=== PATIENT | male | born 1985 ===

== ENCOUNTER 2016-05-31 09:39 | Emergency (ER) | payer MEDICAID, OTHER ==
[2016-05-31 09:47] VITALS: BP 135/59; PULSE 91; RESP 20; TEMP 98.8; O2SAT 98
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
--- NOTE | 2016-05-31 10:49 | RAD ---
PROCEDURE: Right Hand Radiographs. HISTORY: Trauma COMPARISON: None. FINDINGS: BONES: Bone alignment and mineralization are normal. There is no acute displaced fracture or bone destruction. JOINTS: Normal. SOFT TISSUES: Normal. OTHER FINDINGS: None. IMPRESSION: No acute fracture or dislocation.
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
[2016-05-31 11:26] LABS: BASO % 0.3 % (0.0-2.0); EOS # 0.1 K/uL (0.0-0.7); EOS % 1.6 % (0.0-4.0); HEMATOCRIT 43.3 % (35.0-51.0); LYMPH # 1.6 K/uL (1.0-4.3); LYMPH % 20.8 % (20.0-40.0); MEAN CELL VOLUME 88.6 fl (80.0-94.0); MEAN CORPUSCULAR HEMOGLOBIN 29.6 pg (27.0-31.0); MEAN CORPUSCULAR HGB CONC 33.5 g/dL (33.0-37.0); MEAN PLATELET VOLUME 8.4 fl (7.2-11.7); MONO # 0.8 K/uL (0.0-0.8); MONO % 9.8 % (0.0-10.0); NEUT # 5.2 K/uL (1.8-7.0); NEUT % 67.5 % (50.0-75.0); NRBC % 0.2 % (0.0-0.0); RED CELL DISTRIBUTION WIDTH 14.8 % (11.5-14.5); WHITE BLOOD COUNT 7.7 K/uL (4.8-10.8)
== END 2016-05-31 12:49 | disposition home or self-care (01) ==
LOC: H.ER 09:39
DX: L03.019 Cellulitis of unspecified finger (principal); W22.01XA Walked into wall, initial encounter; Y93.9 Activity, unspecified

== ENCOUNTER 2017-07-31 11:38 | Emergency (ER) | payer MEDICAID ==
[2017-07-31 11:41] VITALS: BMI 28.4
[2017-07-31 11:43] VITALS: BP 121/70; PULSE 105; RESP 20; TEMP 98.5
[2017-07-31 12:38] VITALS: O2SAT 99
--- NOTE | 2017-07-31 12:52 | ED PDOC ---
HPI: Skin/Bite Injury Time Seen by Provider: 07/31/17 12:07 Chief Complaint (Nursing): Abnormal Skin Integrity Chief Complaint (Provider): Abnormal Skin Integrity History Per: Patient History/Exam Limitations: no limitations Onset/Duration Of Symptoms: Days (x 1) Current Symptoms Are (Timing): Still Present Quality Of Symptoms: Itching, Other (burning ) Additional Complaint(s): 32 year old male presents to the ED with a burning rash on both armpits since this he awoke this morning. Patient reports that he has had pruritic bug bite like rashes for the last two months on back and forearms. He also admits that he perspires a lot. Denies fever, sick contacts, recent travel and shortness of breath. PMD: Dr. Elizabeth Murray Past Medical History Reviewed: Historical Data, Nursing Documentation, Vital Signs Vital Signs: Last Vital Signs Temp 98.5 F 07/31/17 11:41 Pulse 105 H 07/31/17 11:41 Resp 20 07/31/17 11:41 BP 121/70 07/31/17 11:41 Pulse Ox 99 07/31/17 13:13 - Medical History PMH: No Chronic Diseases - Surgical History Surgical History: No Surg Hx - Family History Family History: States: Unknown Family Hx - Social History Current smoker - smoking cessation education provided: Yes (Heavy Smoker >10 Cigarettes a day ) Alcohol: None Drugs: Denies - Immunization History Hx Tetanus Toxoid Vaccination: No Hx Influenza Vaccination: No Hx Pneumococcal Vaccination: No - Home Medications Home Medications: Ambulatory Orders Medication Instructions Recorded Amoxicillin/Clavulanate [Augmentin 1 tab PO BID #20 tab 05/31/16 875 MG-125 MG] traMADol [Ultram] 50 mg PO Q8 #10 tab 05/31/16 DiphenhydrAMINE [Benadryl] 1 - 2 cap PO Q6 PRN #30 cap 07/31/17 Nystatin/Triamcinolone 1 appl TP TID #1 tube 07/31/17 [Nystatin/Triamcinolone Cream] - Allergies Allergies/Adverse Reactions: Allergies Allergy/AdvReac Type Severity Reaction Status Date / Time No Known Allergies Allergy Verified 05/31/16 09:56 Review of Systems ROS Statement: Except As Marked, All Systems Reviewed And Found Negative Skin: Positive for: Rash (arm pits, forearms and back) Physical Exam - Reviewed Nursing Documentation Reviewed: Yes Vital Signs Reviewed: Yes - Physical Exam Appears: Positive for: Non-toxic, No Acute Distress Head Exam: Positive for: ATRAUMATIC, NORMOCEPHALIC Skin: Positive for: Rash (Large erythematous plaque with scaling and central clearing on b/l axilla and b/l medial upper arms ) Eye Exam: Positive for: EOMI, Normal appearance, PERRL Extremity: Positive for: Normal ROM. Negative for: Other (target shaped lesions or vesicles on axilla or upper arms) Neurologic/Psych: Positive for: Alert, Oriented - ECG O2 Sat by Pulse Oximetry: 99 (RA) Pulse Ox Interpretation: Normal Medical Decision Making Medical Decision Making: Patient is stable will be discharged home with prescriptions of Benadryl and Nystatin cream. Return to the ED if symptoms persist or worsen. Follow up with PMD in 1-2 days. Scribe Attestation: Documented by Tess Brooks, acting as a scribe for Bryant Corado PA-C Provider Scribe Attestation: All medical record entries made by the Scribe were at my direction and personally dictated by me. I have reviewed the chart and agree that the record accurately reflects my personal performance of the history, physical exam, medical decision making, and the department course for this patient. I have also personally directed, reviewed, and agree with the discharge instructions and disposition. Disposition - Clinical Impression Clinical Impression: Tinea corporis - Patient ED Disposition Is Patient to be Admitted: No - Disposition Referrals: [facility] [Outside] [facility] [Outside] Disposition: Routine/Home Disposition Time: 13:20 Condition: STABLE Additional Instructions: Follow up with emergency preparedness manager for further evaluation Return to ED immediately if symptoms worsen Prescriptions: DiphenhydrAMINE [Benadryl] 1 - 2 cap PO Q6 PRN #30 cap PRN Reason: itching or rash Nystatin/Triamcinolone [Nystatin/Triamcinolone Cream] 1 appl TP TID #1 tube Instructions: Ringworm (DC) Forms: [facility] (Indonesian) Print Language: LATVIAN
== END 2017-07-31 13:00 | disposition home or self-care (01) ==
LOC: H.ER 11:38
DX: B35.4 Tinea corporis (principal); F17.210 Nicotine dependence, cigarettes, uncomplicated

== ENCOUNTER 2017-08-06 13:02 | Inpatient (IN) | payer MEDICAID ==
[2017-08-06 13:02] VITALS: BMI 28.4
[2017-08-06] MEDS ORDERED: Iohexol 240 (50 ml) PO ONE (13:32)
[2017-08-06] MEDS ORDERED: Sodium Chloride 0.9% 1,000 ML IV STA (13:33)
--- NOTE | 2017-08-06 14:11 | ED PDOC ---
HPI: Abdomen Time Seen by Provider: 08/06/17 13:21 Chief Complaint (Nursing): Abdominal Pain Chief Complaint (Provider): abdominal pain History Per: Patient History/Exam Limitations: no limitations Onset/Duration Of Symptoms: Days (1), Sudden Onset Current Symptoms Are (Timing): Still Present Location Of Pain/Discomfort: RUQ Quality Of Discomfort: Sharp Associated Symptoms: Back Pain. denies: Fever, Nausea, Vomiting, Diarrhea, Loss Of Appetite Exacerbating Factors: None Alleviating Factors: None Last Bowel Movement: Today Additional Complaint(s): 32yo male c/o back pain radiating to anterior abdomen, now becoming central and right sided abdominal pain, ongoing for a little more than a day. Admits to drinking etoh monday night. Denies vomiting or diarrhea. Ate prior to arrival without issue. Denies trauma or injury. Past Medical History Reviewed: Historical Data, Nursing Documentation, Vital Signs Vital Signs: Last Vital Signs Temp 98.3 F 08/06/17 13:11 Pulse 106 H 08/06/17 13:11 Resp 16 08/06/17 13:11 BP 135/77 08/06/17 13:11 Pulse Ox 98 08/06/17 14:11 - Medical History PMH: No Chronic Diseases - Surgical History Surgical History: No Surg Hx - Family History Family History: States: Unknown Family Hx - Social History Current smoker - smoking cessation education provided: Yes Alcohol: Occasional - Immunization History Hx Tetanus Toxoid Vaccination: No Hx Influenza Vaccination: No Hx Pneumococcal Vaccination: No - Home Medications Home Medications: Ambulatory Orders Medication Instructions Recorded Amoxicillin/Clavulanate [Augmentin 1 tab PO BID #20 tab 05/31/16 875 MG-125 MG] traMADol [Ultram] 50 mg PO Q8 #10 tab 05/31/16 DiphenhydrAMINE [Benadryl] 1 - 2 cap PO Q6 PRN #30 cap 07/31/17 Nystatin/Triamcinolone 1 appl TP TID #1 tube 07/31/17 [Nystatin/Triamcinolone Cream] - Allergies Allergies/Adverse Reactions: Allergies Allergy/AdvReac Type Severity Reaction Status Date / Time No Known Allergies Allergy Verified 08/06/17 13:11 Review of Systems Constitutional: Negative for: Fever, Chills Cardiovascular: Negative for: Chest Pain Respiratory: Negative for: Shortness of Breath Gastrointestinal: Positive for: Abdominal Pain. Negative for: Nausea, Vomiting , Diarrhea Genitourinary Male: Negative for: Dysuria, Hematuria Musculoskeletal: Negative for: Neck Pain Skin: Negative for: Rash, Lesions Neurological: Negative for: Weakness, Numbness Physical Exam - Reviewed Nursing Documentation Reviewed: Yes Vital Signs Reviewed: Yes - Physical Exam Appears: Positive for: Well, Non-toxic, No Acute Distress Head Exam: Positive for: ATRAUMATIC, NORMAL INSPECTION, NORMOCEPHALIC Skin: Positive for: Normal Color, Warm, DRY Eye Exam: Positive for: EOMI, Normal appearance, PERRL ENT: Positive for: Normal ENT Inspection Neck: Positive for: Normal, Painless ROM Cardiovascular/Chest: Positive for: Regular Rate, Rhythm Respiratory: Positive for: CNT, Normal Breath Sounds Gastrointestinal/Abdominal: Positive for: Soft, Tenderness (central and RUQ tenderness). Negative for: Guarding, Rebound Back: Positive for: Normal Inspection Extremity: Positive for: Normal ROM Neurologic/Psych: Positive for: Alert, Oriented - Laboratory Results Result Diagrams: 08/06/17 13:50 08/06/17 13:50 - ECG O2 Sat by Pulse Oximetry: 98 Medical Decision Making Medical Decision Making: workup for abd pain initiated r/o biliary colic vs pancreatitis vs colitis vs appendicits vs back pain vs other toradol and IVF ordered for symptoms check labs, imaging Disposition - Clinical Impression Clinical Impression: Abdominal pain - Patient ED Disposition Is Patient to be Admitted: Transfer of Care - Disposition Disposition: Transfer of Care Disposition Time: 14:55 Condition: STABLE Forms: [employer] (Polish) Patient Signed Over To: Francheska Diaz
[2017-08-06 14:13] LABS: BASO % 0.2 % (0.0-2.0); EOS # 0.2 K/uL (0.0-0.7); EOS % 1.4 % (0.0-4.0); HEMOGLOBIN 14.7 g/dL (12.0-18.0); LYMPH # 1.2 K/uL (1.0-4.3); LYMPH % 8.6 % (20.0-40.0); MEAN CELL VOLUME 88.3 fl (80.0-94.0); MEAN CORPUSCULAR HEMOGLOBIN 29.4 pg (27.0-31.0); MEAN CORPUSCULAR HGB CONC 33.4 g/dL (33.0-37.0); MEAN PLATELET VOLUME 7.4 fl (7.2-11.7); MONO # 0.8 K/uL (0.0-0.8); MONO % 5.9 % (0.0-10.0); NEUT # 11.8 K/uL (1.8-7.0); NEUT % 83.9 % (50.0-75.0); PLATELET COUNT 279 K/uL (130-400); RBC 4.99 Mil/uL (4.40-5.90); RED CELL DISTRIBUTION WIDTH 14.6 % (11.5-14.5); WHITE BLOOD COUNT 14.1 K/uL (4.8-10.8)
[2017-08-06 14:21] LABS: ALB/GLOB RATIO 1.2 (1.0-2.1); ALBUMIN 4.2 g/dL (3.5-5.0); ALT/SGPT 27 U/L (21-72); AST/SGOT 19 U/L (17-59); BLOOD UREA NITROGEN 11 mg/dl (9-20); GFR AFRICAN-AMERICAN > 60; GFR NON-AFRICAN AMERICAN > 60; LIPASE 31 U/L (23-300)
[2017-08-06 14:41] LABS: EOSINOPHIL 3 % (0-7); LYMPHOCYTE 9 % (20-50); MONOCYTE 8 % (0-10); NEUTROPHIL 80 % (42-75); PLATELET ESTIMATE NORMAL (NORMAL); TOTAL CELLS COUNTED 100
--- NOTE | 2017-08-06 15:34 | US ---
HISTORY: RUQ pain, eval for GB/CBD/pancreas/kidneys COMPARISON: None. TECHNIQUE: Sonographic evaluation of the right upper quadrant of the abdomen. FINDINGS: LIVER: Enlarged, measuring 19.2 cm in length. Normal echogenicity of the liver parenchyma. No mass. No intrahepatic bile duct dilatation. GALLBLADDER: Cholelithiasis with gallbladder wall thickening/edema. Sonographic Lundberg's sign was not elicited. COMMON BILE DUCT: Measures 4 mm. No stones. No dilatation. PANCREAS: Unremarkable as visualized. No mass. No ductal dilatation. RIGHT KIDNEY: Measures 13.2 x 5.2 x 5.3 cm in length. Normal echogenicity. No calculus, mass, or hydronephrosis. AORTA: No aneurysmal dilatation. IVC: Unremarkable. OTHER FINDINGS: None . IMPRESSION: Cholelithiasis with gallbladder wall thickening/edema, but without sonographic Lundberg's sign. Findings are equivocal for acute cholecystitis. Nuclear medicine HIDA scan can be obtained to further evaluate patency of the cystic duct.
--- NOTE | 2017-08-06 16:04 | ED PDOC ---
- Laboratory Results Result Diagrams: 08/06/17 13:50 08/06/17 13:50 - ECG O2 Sat by Pulse Oximetry: 98 - Progress ED Course And Treament: 3p Rec'd endorsement from Dr Ivey. Pending ER workup, reassessment and final ER disposition Medical Decision Making Medical Decision Making: Accession No. : [id number] Patient Name / ID : WILDA TORRES / [id number] Exam Date : 08/06/2017 14:46:27 ( Approved ) Study Comment : Sex / Age : M / 32Y Creator : Shashi Dietrich MD Dictator : Shashi Dietrich MD [employer] : Associate Professor Of History : Shashi Dietrich MD Approver2 : Report Date : 08/06/2017 15:32:43 My Comment : HISTORY: RUQ pain, eval for GB/CBD/pancreas/kidneys COMPARISON: None. TECHNIQUE: Sonographic evaluation of the right upper quadrant of the abdomen. FINDINGS: LIVER: Enlarged, measuring 19.2 cm in length. Normal echogenicity of the liver parenchyma. No mass. No intrahepatic bile duct dilatation. GALLBLADDER: Cholelithiasis with gallbladder wall thickening/edema. Sonographic Lundberg's sign was not elicited. COMMON BILE DUCT: Measures 4 mm. No stones. No dilatation. PANCREAS: Unremarkable as visualized. No mass. No ductal dilatation. RIGHT KIDNEY: Measures 13.2 x 5.2 x 5.3 cm in length. Normal echogenicity. No calculus, mass, or hydronephrosis. AORTA: No aneurysmal dilatation. IVC: Unremarkable. OTHER FINDINGS: None . IMPRESSION: Cholelithiasis with gallbladder wall thickening/edema, but without sonographic Lundebrg's sign. Findings are equivocal for acute cholecystitis. Nuclear medicine HIDA scan can be obtained to further evaluate patency of the cystic duct. Accession No. : [id number] Patient Name / ID : WILDA TORRES / [id number] Exam Date : 08/06/2017 16:25:15 ( Approved ) Study Comment : Sex / Age : M / 32Y Creator : Shashi Dietrich MD Dictator : Shashi Dietrich MD [employer] : Associate Professor Of History : Shashi Dietrich MD Approver2 : Report Date : 08/06/2017 16:51:21 My Comment : PROCEDURE: CT Abdomen and Pelvis with contrast HISTORY: central abd pain radiating to back COMPARISON: CT scan of the abdomen pelvis dated 04/20/2012. TECHNIQUE: Contrast dose: 98 mL Omnipaque 300 Radiation dose: Total exam DLP = 85.9 mGy-cm. This CT exam was performed using one or more of the following dose reduction techniques: Automated exposure control, adjustment of the mA and/or kV according to patient size, and/or use of iterative reconstruction technique. FINDINGS: LOWER THORAX: Unremarkable. LIVER: Hepatic steatosis. No gross lesion or ductal dilatation. GALLBLADDER AND BILE DUCTS: Cholelithiasis with gallbladder wall thickening/ edema. PANCREAS: Unremarkable. No gross lesion or ductal dilatation. SPLEEN: Unremarkable. ADRENALS: Unremarkable. No mass. KIDNEYS AND URETERS: Unremarkable. No hydronephrosis. No solid mass. VASCULATURE: Unremarkable. No aortic aneurysm. BOWEL: Unremarkable. No obstruction. No gross mural thickening. APPENDIX: Not visualized. PERITONEUM: Unremarkable. No free fluid. No free air. LYMPH NODES: Unremarkable. No enlarged lymph nodes. BLADDER: Unremarkable. REPRODUCTIVE: Unremarkable. BONES: New L1 superior endplate Schmorl node. No acute fracture. OTHER FINDINGS: None. IMPRESSION: Cholelithiasis with gallbladder wall thickening/edema may represent acute cholecystitis in the appropriate clinical setting. Nuclear medicine HIDA scan can be obtained to further evaluate patency of the cystic duct. 17:[address] Morris, surgeon call. Patient to be hospitalized under her service for acute cholecystitis. Discussed findings and plan with patient. Accession No. : [id number] Patient Name / ID : WILDA TORRES / [id number] Exam Date : 08/06/2017 17:30:33 ( Approved ) Study Comment : Sex / Age : M / 32Y Creator : Shashi Dietrich MD Dictator : Shashi Dietrich MD [employer] : Associate Professor Of History : Shashi Dietrich MD Approver2 : Report Date : 08/06/2017 17:45:19 My Comment : HISTORY: abd pain COMPARISON: Chest radiograph dated 04/20/2012 FINDINGS: LUNGS: No active pulmonary disease. PLEURA: No significant pleural effusion identified, no pneumothorax apparent. CARDIOVASCULAR: Normal. OSSEOUS STRUCTURES: No significant abnormalities. VISUALIZED UPPER ABDOMEN: Normal. OTHER FINDINGS: None. IMPRESSION: No active disease. Scribe Attestation: Documented by Chente Yeh, acting as a scribe for Francheska Diaz MD. Provider Scribe Attestation: All medical record entries made by the Scribe were at my direction and personally dictated by me. I have reviewed the chart and agree that the record accurately reflects my personal performance of the history, physical exam, medical decision making, and the department course for this patient. I have also personally directed, reviewed, and agree with the discharge instructions and disposition. Disposition Counseled Patient/Family Regarding: Studies Performed, Diagnosis - Clinical Impression Clinical Impression: Cholecystitis - POA Present On Arrival: None - Disposition Disposition: Admitted as In-Patient Disposition Time: 17:30 Condition: FAIR
[2017-08-06 16:18] LABS: URINE BILIRUBIN NEGATIVE (NEGATIVE); URINE BLOOD NEGATIVE (NEGATIVE); URINE CLARITY SLIGHTY-CLOUDY (Clear); URINE COLOR YELLOW (YELLOW); URINE GLUCOSE (UA) NEG (Normal); URINE LEUKOCYTE ESTERASE NEG Leu/uL (Negative); URINE PROTEIN 30 mg/dL (NEGATIVE)
[2017-08-06] MEDS ORDERED: Iohexol 300 100 ML IJ ONE (16:18)
[2017-08-06] MEDS ORDERED: Sodium Chloride 0.9% 50 ML IV ONE (16:18)
[2017-08-06 16:35] LABS: BARBITURATES, UR NEGATIVE (NEGATIVE); BENZODIAZEPINES, UR NEGATIVE (NEGATIVE); OPIATES, UR NEGATIVE (NEGATIVE); PHENCYCLIDINE, UR NEGATIVE (NEGATIVE)
--- NOTE | 2017-08-06 16:52 | CT ---
PROCEDURE: CT Abdomen and Pelvis with contrast HISTORY: central abd pain radiating to back COMPARISON: CT scan of the abdomen pelvis dated 04/20/2012. TECHNIQUE: Contrast dose: 98 mL Omnipaque 300 Radiation dose: Total exam DLP = 85.9 mGy-cm. This CT exam was performed using one or more of the following dose reduction techniques: Automated exposure control, adjustment of the mA and/or kV according to patient size, and/or use of iterative reconstruction technique. FINDINGS: LOWER THORAX: Unremarkable. LIVER: Hepatic steatosis. No gross lesion or ductal dilatation. GALLBLADDER AND BILE DUCTS: Cholelithiasis with gallbladder wall thickening/ edema. PANCREAS: Unremarkable. No gross lesion or ductal dilatation. SPLEEN: Unremarkable. ADRENALS: Unremarkable. No mass. KIDNEYS AND URETERS: Unremarkable. No hydronephrosis. No solid mass. VASCULATURE: Unremarkable. No aortic aneurysm. BOWEL: Unremarkable. No obstruction. No gross mural thickening. APPENDIX: Not visualized. PERITONEUM: Unremarkable. No free fluid. No free air. LYMPH NODES: Unremarkable. No enlarged lymph nodes. BLADDER: Unremarkable. REPRODUCTIVE: Unremarkable. BONES: New L1 superior endplate Schmorl node. No acute fracture. OTHER FINDINGS: None. IMPRESSION: Cholelithiasis with gallbladder wall thickening/edema may represent acute cholecystitis in the appropriate clinical setting. Nuclear medicine HIDA scan can be obtained to further evaluate patency of the cystic duct.
[2017-08-06] MEDS ORDERED: Piperacillin/Tazobact 3.375 GM in Sodium Chloride 0.9% 100 ML IV STA (17:24)
[2017-08-06] MEDS ORDERED: Piperacillin/Tazobact 3.375 gm Inj IVPB ONE (17:34)
--- NOTE | 2017-08-06 17:47 | RAD ---
HISTORY: abd pain COMPARISON: Chest radiograph dated 04/20/2012 FINDINGS: LUNGS: No active pulmonary disease. PLEURA: No significant pleural effusion identified, no pneumothorax apparent. CARDIOVASCULAR: Normal. OSSEOUS STRUCTURES: No significant abnormalities. VISUALIZED UPPER ABDOMEN: Normal. OTHER FINDINGS: None. IMPRESSION: No active disease.
[2017-08-06 18:33] LABS: PARTIAL THROMBOPLASTIN TIME 33.5 Seconds (25.6-37.1); PROTHROMBIN TIME 11.3 Seconds (9.8-13.1)
--- NOTE | 2017-08-06 18:36 | CP.PCM.CON ---
History of Present Illness - History of Present Illness History of Present Illness: General Surgery Consult Note: Dr. Morris 32M with no significant past medical history presents to [facility] ED with complaints of abdominal pain. Patient states he woke up this morning from the severity of abdominal pain. Patient reports pain is along epigastrium and radiates towards his right upper quadrants. He admits to eating a large Clarice[employer] meal prior to falling asleep. Patient reports nausea, denies chest pain/ shortness of breath, denies dysuria. PMHx: denies PSurgHx: none Soc Hx: 1-2ppd x 15 years, drinks 1 pint of rum ~every other day, denies illicit drug use Allergies: NKDA Fam Hx: non-contributory Review of Systems - Review of Systems Review of Systems: 12 pt ROS unremarkable except as stated in HPI Past Patient History - Past Social History Alcohol: Occasional - PSYCHIATRIC Hx Substance Use: No - SURGICAL HISTORY Hx Surgeries: No - ANESTHESIA Hx Anesthesia: No Meds Allergies/Adverse Reactions: Allergies Allergy/AdvReac Type Severity Reaction Status Date / Time No Known Allergies Allergy Verified 08/06/17 13:11 - Medications Medications: Current Medications Dextrose/Sodium Chloride (Dextrose 5%-0.9% Ns 500 Ml) 1,000 mls @ 100 mls/hr IV .Q10H LAUREN Last Admin: 08/06/17 18:00 Dose: 100 mls/hr Physical Exam - Constitutional Appears: Non-toxic, No Acute Distress - Head Exam Head Exam: NORMOCEPHALIC - Eye Exam Eye Exam: EOMI, Normal appearance - ENT Exam ENT Exam: Mucous Membranes Moist - Respiratory Exam Respiratory Exam: NORMAL BREATHING PATTERN - Cardiovascular Exam Cardiovascular Exam: +S1, +S2 - GI/Abdominal Exam GI & Abdominal Exam: Guarding, Soft, Tenderness. absent: Distended, Firm, Rebound, Rigid Additional comments: +epigastric tenderness +RUQ tenderness +Lundberg's sign Results - Vital Signs Recent Vital Signs: Last Vital Signs Temp 98.3 F 08/06/17 13:11 Pulse 106 H 08/06/17 13:11 Resp 16 08/06/17 13:11 BP 135/77 08/06/17 13:11 Pulse Ox 98 08/06/17 17:57 - Labs Result Diagrams: 08/06/17 13:50 08/06/17 13:50 Labs: Laboratory Results - last 24 hr 08/06/17 08/06/17 08/06/17 13:50 13:50 16:00 WBC 14.1 H D RBC 4.99 Hgb 14.7 Hct 44.1 MCV 88.3 MCH 29.4 MCHC 33.4 RDW 14.6 H Plt Count 279 MPV 7.4 Neut % (Auto) 83.9 H Lymph % (Auto) 8.6 L [place] % (Auto) 5.9 Eos % (Auto) 1.4 Baso % (Auto) 0.2 Neut # (Auto) 11.8 H Lymph # (Auto) 1.2 [place] # (Auto) 0.8 Eos # (Auto) 0.2 Baso # (Auto) 0.0 Neutrophils % (Manual) 80 H Lymphocytes % (Manual) 9 L Monocytes % (Manual) 8 Eosinophils % (Manual) 3 Platelet Estimate Normal RBC Morphology Normal PT INR APTT Sodium 141 Potassium 4.2 Chloride 102 Carbon Dioxide 27 Anion Gap 16 BUN 11 Creatinine 0.6 L Est GFR ( Amer) > 60 Est GFR (Non-Af Amer) > 60 Random Glucose 110 Calcium 9.0 Total Bilirubin 0.8 AST 19 ALT 27 Alkaline Phosphatase 93 Total Protein 7.6 Albumin 4.2 Globulin 3.4 Albumin/Globulin Ratio 1.2 Lipase 31 Urine Color Urine Clarity Urine pH Ur Specific [place] Urine Protein Urine Glucose (UA) Urine Ketones Urine Blood Urine Nitrate Urine Bilirubin Urine Urobilinogen Ur Leukocyte Esterase Urine RBC (Auto) Urine Microscopic WBC Urine Opiates Screen Negative Urine Methadone Screen Negative Ur Barbiturates Screen Negative Ur Phencyclidine Scrn Negative Ur Amphetamines Screen Negative U Benzodiazepines Scrn Negative U Oth Cocaine Metabols Negative U Cannabinoids Screen Negative 08/06/17 08/06/17 16:00 18:00 WBC RBC Hgb Hct MCV MCH MCHC RDW Plt Count MPV Neut % (Auto) Lymph % (Auto) [place] % (Auto) Eos % (Auto) Baso % (Auto) Neut # (Auto) Lymph # (Auto) [place] # (Auto) Eos # (Auto) Baso # (Auto) Neutrophils % (Manual) Lymphocytes % (Manual) Monocytes % (Manual) Eosinophils % (Manual) Platelet Estimate RBC Morphology PT 11.3 INR 1.0 APTT 33.5 Sodium Potassium Chloride Carbon Dioxide Anion Gap BUN Creatinine Est GFR ( Amer) Est GFR (Non-Af Amer) Random Glucose Calcium Total Bilirubin AST ALT Alkaline Phosphatase Total Protein Albumin Globulin Albumin/Globulin Ratio Lipase Urine Color Yellow Urine Clarity Slighty-cloudy Urine pH 8.0 Ur Specific [place] 1.019 Urine Protein 30 Urine Glucose (UA) Neg Urine Ketones Negative Urine Blood Negative Urine Nitrate Negative Urine Bilirubin Negative Urine Urobilinogen 2.0 Ur Leukocyte Esterase Neg Urine RBC (Auto) 4 H Urine Microscopic WBC < 1 Urine Opiates Screen Urine Methadone Screen Ur Barbiturates Screen Ur Phencyclidine Scrn Ur Amphetamines Screen U Benzodiazepines Scrn U Oth Cocaine Metabols U Cannabinoids Screen - Imaging and Cardiology US - abdomen Status: Image reviewed by me, Report reviewed by me Assessment & Plan - Assessment and Plan (Free Text) Assessment: 32M with acute cholecystitis Plan: OR tomorrow AM for laparoscopic cholecystectomy possible open NPO IVF ABx Analgesics, Anti-emetics prn SCDs D/w Dr. Arturo Yee PGY2
[2017-08-06] MEDS ORDERED: Morphine 4 MG/ML VIAL IVP PRN (18:42)
[2017-08-06] MEDS: Piperacillin/Tazobact 3.375 GM in Sodium Chloride 0.9% 100 ML IVPB SCH (22:48)
[2017-08-07] MEDS: Lactated Ringer's 1,000 ML IV SCH ×3 (03:00→20:06)
[2017-08-07] MEDS: Piperacillin/Tazobact 3.375 GM in Sodium Chloride 0.9% 100 ML IVPB SCH ×4 (04:16→22:19)
[2017-08-07 06:29] LABS: BASO % 0.2 % (0.0-2.0); EOS # 0.5 K/uL (0.0-0.7); HEMOGLOBIN 13.5 g/dL (12.0-18.0); LYMPH # 2.2 K/uL (1.0-4.3); LYMPH % 23.4 % (20.0-40.0); MEAN CELL VOLUME 89.3 fl (80.0-94.0); MEAN CORPUSCULAR HEMOGLOBIN 29.5 pg (27.0-31.0); MEAN PLATELET VOLUME 7.5 fl (7.2-11.7); MONO # 0.9 K/uL (0.0-0.8); MONO % 9.5 % (0.0-10.0); NEUT # 5.9 K/uL (1.8-7.0); NEUT % 61.9 % (50.0-75.0); NRBC % 0.1 % (0.0-0.0); RBC 4.58 Mil/uL (4.40-5.90); RED CELL DISTRIBUTION WIDTH 14.6 % (11.5-14.5); WHITE BLOOD COUNT 9.5 K/uL (4.8-10.8)
[2017-08-07 07:06] LABS: ALB/GLOB RATIO 1.1 (1.0-2.1); ALBUMIN 3.4 g/dL (3.5-5.0); ALT/SGPT 23 U/L (21-72); AST/SGOT 19 U/L (17-59); BLOOD UREA NITROGEN 6 mg/dl (9-20); CALCIUM 8.4 mg/dL (8.4-10.2); GFR AFRICAN-AMERICAN > 60; GFR NON-AFRICAN AMERICAN > 60
[2017-08-07] MEDS ORDERED: Lidocaine 4% (Laryng-O-Jet) Kit MM ONE (13:19)
[2017-08-07] MEDS ORDERED: Propofol 10 mg/ml Inj (20 ML) ONE (13:19)
[2017-08-07] MEDS ORDERED: Succinylcholine 200 mg/10 ml Inj IV ONE (13:19)
[2017-08-07] MEDS ORDERED: Rocuronium 10 mg/ml (5 ml) ONE (13:19)
[2017-08-07] MEDS ORDERED: Midazolam 2 MG/2 ML VIAL ONE (14:09)
[2017-08-07] MEDS ORDERED: Lactated Ringer's 1,000 ML IV ONE ×2 (14:19→15:00)
[2017-08-07] MEDS ORDERED: Neostigmine 1:1000 (1 mg/ml) Inj ONE (14:48)
--- NOTE | 2017-08-07 15:54 | PCM.SURG1 ---
Surgeon's Initial Post Op Note - Surgeon's Notes Surgeon: Dr. Morris Cloth Tearer: Dang Loya PGY1 Type of Anesthesia: General Endo Anesthesia Administered By: Dr. Hernández Pre-Operative Diagnosis: Acute Cholecystitis Operative Findings: see operative report Post-Operative Diagnosis: same Operation Performed: Laparascopic Cholecystectomy Specimen/Specimens Removed: Gallbladder Estimated Blood Loss: EBL {In ML}: 15 Blood Products Given: N/A Drains Used: No Drains Post-Op Condition: Good Date of Surgery/Procedure: 08/07/17 Time of Surgery/Procedure: 15:54
[2017-08-07] MEDS: HYDROmorphone 0.5 mg/0.5 ml ISec IVP PRN ×3 (16:41→17:16)
[2017-08-08] MEDS: Oxycodone/Acetaminophen 5/325 mg Tab PO PRN ×2 (00:04→10:53)
[2017-08-08] MEDS: Piperacillin/Tazobact 3.375 GM in Sodium Chloride 0.9% 100 ML IVPB SCH (03:53)
[2017-08-08] MEDS: Lactated Ringer's 1,000 ML IV SCH (05:15)
[2017-08-08 06:15] LABS: BASO % 0.1 % (0.0-2.0); EOS % 0.1 % (0.0-4.0); LYMPH # 0.7 K/uL (1.0-4.3); LYMPH % 5.2 % (20.0-40.0); MEAN CELL VOLUME 89.1 fl (80.0-94.0); MEAN CORPUSCULAR HEMOGLOBIN 29.4 pg (27.0-31.0); MEAN PLATELET VOLUME 7.6 fl (7.2-11.7); MONO # 0.9 K/uL (0.0-0.8); MONO % 7.1 % (0.0-10.0); NEUT # 11.1 K/uL (1.8-7.0); NEUT % 87.5 % (50.0-75.0); RBC 3.06 Mil/uL (4.40-5.90); RED CELL DISTRIBUTION WIDTH 14.1 % (11.5-14.5); WHITE BLOOD COUNT 12.7 K/uL (4.8-10.8)
[2017-08-08 06:27] LABS: ALB/GLOB RATIO 1.1 (1.0-2.1); ALBUMIN 2.9 g/dL (3.5-5.0); ALT/SGPT 55 U/L (21-72); AST/SGOT 50 U/L (17-59); BLOOD UREA NITROGEN 14 mg/dl (9-20); CALCIUM 8.1 mg/dL (8.4-10.2); GFR AFRICAN-AMERICAN > 60; GFR NON-AFRICAN AMERICAN > 60
[2017-08-08 07:50] VITALS: BP 110/52; PULSE 98; RESP 18; TEMP 97.8; O2SAT 97
--- NOTE | 2017-08-08 08:05 | CP.PCM.HP ---
History of Present Illness - History of Present Illness History of Present Illness: 32M with no significant past medical history presents to [facility] ED with complaints of abdominal pain. Patient states he woke up this morning from the severity of abdominal pain. Patient reports pain is along epigastrium and radiates towards his right upper quadrants. He admits to eating a large Clarice's meal prior to falling asleep. Patient reports nausea, denies chest pain/ shortness of breath, denies dysuria. PMHx: denies PSurgHx: none Soc Hx: 1-2ppd x 15 years, drinks 1 pint of rum ~every other day, denies illicit drug use Allergies: NKDA Fam Hx: non-contributory Present on Admission - Present on Admission Any Indicators Present on Admission: No Review of Systems - Review of Systems Review of Systems: 12 pt ROS as per HPI Past Patient History - Past Medical History & Family History Past Medical History?: No - Past Social History Smoking Status: Current Some Days Smoker - MUSCULOSKELETAL/RHEUMATOLOGICAL Hx Falls: No - PSYCHIATRIC Hx Substance Use: No - SURGICAL HISTORY Hx Surgeries: No - ANESTHESIA Hx Anesthesia: No Meds Allergies/Adverse Reactions: Allergies Allergy/AdvReac Type Severity Reaction Status Date / Time No Known Allergies Allergy Verified 08/06/17 13:11 Physical Exam - Constitutional Appears: Non-toxic - Head Exam Head Exam: NORMAL INSPECTION, NORMOCEPHALIC - Eye Exam Eye Exam: Normal appearance - ENT Exam ENT Exam: Mucous Membranes Moist - Neck Exam Neck exam: Positive for: Normal Inspection - Respiratory Exam Respiratory Exam: NORMAL BREATHING PATTERN - Cardiovascular Exam Cardiovascular Exam: +S1, +S2 - GI/Abdominal Exam GI & Abdominal Exam: Guarding, Tenderness. absent: Distended, Firm, Hernia, Rebound, Rigid Additional comments: +RUQ tenderness +Lundberg's - Neurological Exam Neurological exam: Alert, Oriented x3 - Psychiatric Exam Psychiatric exam: Normal Mood - Skin Skin Exam: Dry, Intact, Warm Results - Vital Signs Recent Vital Signs: Last Vital Signs Temp 97.8 F 08/08/17 07:49 Pulse 98 H 08/08/17 07:49 Resp 18 08/08/17 07:49 BP 110/52 L 08/08/17 07:49 Pulse Ox 97 08/08/17 07:49 - Labs Result Diagrams: 08/08/17 05:35 06/12/18 05:35 Labs: Laboratory Results - last 24 hr 08/08/17 08/08/17 05:35 05:35 WBC 12.7 H RBC 3.06 L Hgb 9.0 L D Hct 27.2 L MCV 89.1 MCH 29.4 MCHC 33.0 RDW 14.1 Plt Count 226 MPV 7.6 Neut % (Auto) 87.5 H Lymph % (Auto) 5.2 L [place] % (Auto) 7.1 Eos % (Auto) 0.1 Baso % (Auto) 0.1 Neut # (Auto) 11.1 H Lymph # (Auto) 0.7 L [place] # (Auto) 0.9 H Eos # (Auto) 0.0 Baso # (Auto) 0.0 Sodium 134 Potassium 4.3 Chloride 101 Carbon Dioxide 29 Anion Gap 8 L BUN 14 Creatinine 0.8 Est GFR ( Amer) > 60 Est GFR (Non-Af Amer) > 60 Random Glucose 106 Calcium 8.1 L Total Bilirubin 0.9 AST 50 ALT 55 Alkaline Phosphatase 65 Total Protein 5.4 L Albumin 2.9 L Globulin 2.6 Albumin/Globulin Ratio 1.1 - Imaging and Cardiology US - abdomen Status: Image reviewed by me, Report reviewed by me Assessment & Plan - Assessment and Plan (Free Text) Assessment: 32M with acute cholecystitis Plan: OR tomorrow AM for laparoscopic cholecystectomy possible open NPO IVF ABx Analgesics, Anti-emetics prn SCDs D/w Dr. Arturo Yee PGY2
--- NOTE | 2017-08-08 08:07 | CP.PCM.DIS ---
Provider - Provider Date of Admission: 08/06/17 17:29 Attending physician: Ethan Morris MD Hospital Course - Lab Results Lab Results: Micro Results 08/06/17 18:00 Blood-Venous Blood Culture - Preliminary NO GROWTH AFTER 24 HOURS 08/06/17 17:45 Blood-Venous Blood Culture - Preliminary NO GROWTH AFTER 24 HOURS Most Recent Lab Values WBC 12.7 K/uL (4.8-10.8) H 08/08/17 05:35 RBC 3.06 Mil/uL (4.40-5.90) L 08/08/17 05:35 Hgb 9.0 g/dL (12.0-18.0) L D 08/08/17 05:35 Hct 27.2 % (35.0-51.0) L 08/08/17 05:35 MCV 89.1 fl (80.0-94.0) 08/08/17 05:35 MCH 29.4 pg (27.0-31.0) 08/08/17 05:35 MCHC 33.0 g/dL (33.0-37.0) 08/08/17 05:35 RDW 14.1 % (11.5-14.5) 08/08/17 05:35 Plt Count 226 K/uL (130-400) 08/08/17 05:35 MPV 7.6 fl (7.2-11.7) 08/08/17 05:35 Neut % (Auto) 87.5 % (50.0-75.0) H 08/08/17 05:35 Lymph % (Auto) 5.2 % (20.0-40.0) L 08/08/17 05:35 [place] % (Auto) 7.1 % (0.0-10.0) 08/08/17 05:35 Eos % (Auto) 0.1 % (0.0-4.0) 08/08/17 05:35 Baso % (Auto) 0.1 % (0.0-2.0) 08/08/17 05:35 Neut # (Auto) 11.1 K/uL (1.8-7.0) H 08/08/17 05:35 Lymph # (Auto) 0.7 K/uL (1.0-4.3) L 08/08/17 05:35 [place] # (Auto) 0.9 K/uL (0.0-0.8) H 08/08/17 05:35 Eos # (Auto) 0.0 K/uL (0.0-0.7) 08/08/17 05:35 Baso # (Auto) 0.0 K/uL (0.0-0.2) 08/08/17 05:35 Neutrophils % (Manual) 80 % (42-75) H 08/06/17 13:50 Lymphocytes % (Manual) 9 % (20-50) L 08/06/17 13:50 Monocytes % (Manual) 8 % (0-10) 08/06/17 13:50 Eosinophils % (Manual) 3 % (0-7) 08/06/17 13:50 Platelet Estimate Normal (NORMAL) 08/06/17 13:50 RBC Morphology Normal (NORMAL) 08/06/17 13:50 PT 11.3 Seconds (9.8-13.1) 08/06/17 18:00 INR 1.0 (0.9-1.2) 08/06/17 18:00 APTT 33.5 Seconds (25.6-37.1) 08/06/17 18:00 Sodium 134 mmol/l (132-148) 08/08/17 05:35 Potassium 4.3 MMOL/L (3.6-5.0) 08/08/17 05:35 Chloride 101 mmol/L (98-107) 08/08/17 05:35 Carbon Dioxide 29 mmol/L (22-30) 08/08/17 05:35 Anion Gap 8 (10-20) L 08/08/17 05:35 BUN 14 mg/dl (9-20) 08/08/17 05:35 Creatinine 0.8 mg/dl (0.8-1.5) 08/08/17 05:35 Est GFR ( Amer) > 60 08/08/17 05:35 Est GFR (Non-Af Amer) > 60 08/08/17 05:35 Random Glucose 106 mg/dL (75-110) 08/08/17 05:35 Calcium 8.1 mg/dL (8.4-10.2) L 08/08/17 05:35 Total Bilirubin 0.9 mg/dl (0.2-1.3) 08/08/17 05:35 AST 50 U/L (17-59) 08/08/17 05:35 ALT 55 U/L (21-72) 08/08/17 05:35 Alkaline Phosphatase 65 U/L (38-126) 08/08/17 05:35 Total Protein 5.4 G/DL (6.3-8.2) L 08/08/17 05:35 Albumin 2.9 g/dL (3.5-5.0) L 08/08/17 05:35 Globulin 2.6 gm/dL (2.2-3.9) 08/08/17 05:35 Albumin/Globulin Ratio 1.1 (1.0-2.1) 08/08/17 05:35 Lipase 31 U/L (23-300) 08/06/17 13:50 Urine Color Yellow (YELLOW) 08/06/17 16:00 Urine Clarity Slighty-cloudy (Clear) 08/06/17 16:00 Urine pH 8.0 (5.0-8.0) 08/06/17 16:00 Ur Specific [place] 1.019 (1.003-1.030) 08/06/17 16:00 Urine Protein 30 mg/dL (NEGATIVE) 08/06/17 16:00 Urine Glucose (UA) Neg mg/dL (Normal) 08/06/17 16:00 Urine Ketones Negative mg/dL (NEGATIVE) 08/06/17 16:00 Urine Blood Negative (NEGATIVE) 08/06/17 16:00 Urine Nitrate Negative (NEGATIVE) 08/06/17 16:00 Urine Bilirubin Negative (NEGATIVE) 08/06/17 16:00 Urine Urobilinogen 2.0 mg/dL (0.2-1.0) 08/06/17 16:00 Ur Leukocyte Esterase Neg Zay/uL (Negative) 08/06/17 16:00 Urine RBC (Auto) 4 /hpf (0-3) H 08/06/17 16:00 Urine Microscopic WBC < 1 /hpf (0-5) 08/06/17 16:00 Urine Opiates Screen Negative (NEGATIVE) 08/06/17 16:00 Urine Methadone Screen Negative (NEGATIVE) 08/06/17 16:00 Ur Barbiturates Screen Negative (NEGATIVE) 08/06/17 16:00 Ur Phencyclidine Scrn Negative (NEGATIVE) 08/06/17 16:00 Ur Amphetamines Screen Negative (NEGATIVE) 08/06/17 16:00 U Benzodiazepines Scrn Negative (NEGATIVE) 08/06/17 16:00 U Oth Cocaine Metabols Negative (NEGATIVE) 08/06/17 16:00 U Cannabinoids Screen Negative (NEGATIVE) 08/06/17 16:00 Blood Type A POSITIVE 08/06/17 18:00 Antibody Screen Negative 08/06/17 18:00 BBK History Checked No verified bt 08/06/17 18:00 Discharge Exam - Head Exam Head Exam: NORMAL INSPECTION, NORMOCEPHALIC Discharge Plan - Follow Up Plan Condition: FAIR Disposition: HOME/ ROUTINE Instructions: Cholecystitis (DC) Referrals: Ethan Morris MD [Staff Provider] - Elizabeth Murray MD [Family Provider] -
[2017-08-08] MEDS ORDERED: Lactobacillus Acidophilus 500 MU Cap PO SCH (09:00)
--- NOTE | 2017-08-08 09:56 | CARD ---
APPROVED REPORT EKG Measurement Heart [id number] <Conclusion> Normal sinus rhythm Normal ECG
--- NOTE | 2017-08-09 06:33 | OP ---
PROCEDURE DATE: 08/07/2017 PREOPERATIVE DIAGNOSIS: Acute cholecystitis. POSTOPERATIVE DIAGNOSIS: Acute cholecystitis. PROCEDURE: Laparoscopic cholecystectomy. DESCRIPTION OF OPERATION: With the patient in the supine position under adequate general anesthesia, the abdomen was prepped and draped in the usual sterile manner. Veress needle puncture was performed at the umbilicus with insufflation to 15 cm water pressure of CO2 and a 10-mm laparoscopic trocar was inserted via an infraumbilical incision. Under direct vision, additional trocars were inserted in the epigastrium and right costal margin. The gallbladder was visualized. It appeared mildly inflamed, however, was not tensely distended. The gallbladder was grasped and elevated. The infundibulum was grasped and retracted laterally. The cystic duct was dissected and cleared down towards the junction with the common bile duct. The cystic duct was triply clipped and divided. Anterior and posterior branches of the cystic artery were identified and it was triply clipped and divided and the gallbladder was dissected free off the liver bed using electrocautery. The liver bed was inspected for hemostasis and the dissection was completed. The gallbladder was placed in a specimen retrieval bag and removed via the umbilical port site. The right upper quadrant was irrigated and suctioned. Pneumoperitoneum was released and the trocars were removed. The umbilical port site was closed with a [id number] fascial suture of 0 Vicryl. All incisions were closed with subcuticular sutures of 4-0 Monocryl and Steri-Strips. Dry sterile dressings were applied. The patient tolerated the procedure well and transferred to recovery room in stable condition. Estimated blood loss for the procedure was 10 mL. Ethan Morris MD
== END 2017-08-08 11:21 | disposition home or self-care (01) | DRG 494 ==
LOC: H.ER 13:02 → H.ERHOLD 17:29 → H.MEDSURG1 21:53
PROVIDERS: ADMIT Specialist; ATTEND Specialist
PROC: 0FT44ZZ Resection of Gallbladder, Percutaneous Endoscopic Approach (ICD-10-PCS; principal; 2017-08-07 13:00)
DX: K81.0 Acute cholecystitis (principal); F17.200 Nicotine dependence, unspecified, uncomplicated

== ENCOUNTER 2017-08-09 21:31 | Observation (INO) | payer MEDICAID ==
[2017-08-09 21:31] VITALS: BMI 28.4
[2017-08-09] MEDS ORDERED: Sodium Chloride 0.9% 1,000 ML IV STA (22:36)
[2017-08-09 22:41] LABS: BASO # 0.1 K/uL (0.0-0.2); BASO % 0.8 % (0.0-2.0); EOS # 0.2 K/uL (0.0-0.7); HEMOGLOBIN 7.7 g/dL (12.0-18.0); LYMPH # 1.8 K/uL (1.0-4.3); LYMPH % 18.9 % (20.0-40.0); MEAN CELL VOLUME 88.5 fl (80.0-94.0); MEAN CORPUSCULAR HEMOGLOBIN 29.9 pg (27.0-31.0); MEAN CORPUSCULAR HGB CONC 33.7 g/dL (33.0-37.0); MEAN PLATELET VOLUME 7.1 fl (7.2-11.7); MONO # 0.7 K/uL (0.0-0.8); MONO % 7.5 % (0.0-10.0); NEUT # 6.7 K/uL (1.8-7.0); NEUT % 70.8 % (50.0-75.0); RBC 2.58 Mil/uL (4.40-5.90); WHITE BLOOD COUNT 9.4 K/uL (4.8-10.8)
--- NOTE | 2017-08-09 22:41 | ED PDOC ---
HPI: General Adult Time Seen by Provider: 08/09/17 21:45 Chief Complaint (Nursing): Abnormal Skin Integrity Chief Complaint (Provider): Abnormal Skin Integrity History Per: Patient History/Exam Limitations: no limitations Onset/Duration Of Symptoms: Days (x 1) Current Symptoms Are (Timing): Still Present Additional Complaint(s): 32 year old male presents to the ED with abdominal pain that began earlier today. Patient reports he had a laproscopic cholecystectomy done on 08/06 and was discharged without swelling or discharge. Now he complains abdominal pain, purulent discharge coming out of umbilicus, and hematoma covering abdomen that presented today. Patient has been taking Tylenol and Toradol as needed. Denies fever, vomiting and diarrhea. PMD: Dr. Elizabeth Murray Past Medical History Reviewed: Historical Data, Nursing Documentation, Vital Signs Vital Signs: Last Vital Signs Temp 98 F 08/10/17 13:08 Pulse 92 H 08/10/17 13:08 Resp 17 08/10/17 13:08 BP 137/78 08/10/17 13:08 Pulse Ox 98 08/10/17 13:08 - Medical History PMH: No Chronic Diseases - Surgical History Surgical History: Cholecystectomy (08/07/2017) - Family History Family History: States: Unknown Family Hx - Social History Current smoker - smoking cessation education provided: No Alcohol: None Drugs: Denies - Immunization History Hx Tetanus Toxoid Vaccination: No Hx Influenza Vaccination: No Hx Pneumococcal Vaccination: No - Home Medications Home Medications: Ambulatory Orders Medication Instructions Recorded Acetaminophen [Tylenol] 650 mg PO Q6 PRN 08/09/17 Ketorolac Tromethamine [Toradol] 10 mg PO Q6 PRN 08/09/17 - Allergies Allergies/Adverse Reactions: Allergies Allergy/AdvReac Type Severity Reaction Status Date / Time No Known Allergies Allergy Verified 08/06/17 13:11 Review of Systems ROS Statement: Except As Marked, All Systems Reviewed And Found Negative Gastrointestinal: Positive for: Abdominal Pain (accompanied by purulent drainage from wound and hematoma. ) Physical Exam - Reviewed Nursing Documentation Reviewed: Yes Vital Signs Reviewed: Yes - Physical Exam Appears: Positive for: Non-toxic, No Acute Distress Head Exam: Positive for: ATRAUMATIC, NORMAL INSPECTION, NORMOCEPHALIC Skin: Positive for: Normal Color, Warm, Dry Eye Exam: Positive for: EOMI, Normal appearance, PERRL Neck: Positive for: Normal, Painless ROM, Supple Respiratory: Positive for: Normal Breath Sounds. Negative for: Respiratory Distress Gastrointestinal/Abdominal: Positive for: Soft, Tenderness (minimal tenderness to incision area), Other (hematoma covering whole anterior abdomen (1 1/2 inch above umbilicus to the inguinal area); incision looks slightly open and dehisced ) Extremity: Positive for: Normal ROM. Negative for: Deformity Neurologic/Psych: Positive for: Alert, Oriented. Negative for: Motor/Sensory Deficits - Laboratory Results Result Diagrams: 08/10/17 06:30 08/10/17 05:55 - ECG O2 Sat by Pulse Oximetry: 98 (RA) Pulse Ox Interpretation: Normal Medical Decision Making Medical Decision Makin:17 Impression; abdominal pain and drainage from wound s/p cholecystectomy Initial Plan: --CMP --CBC --NS IV --Blood cx 23:20 Hemoglobin levels discussed with surgeon Dr. Morris who said to admit the pt under her service and call the surgical scheduler. the residnet aware. Scribe Attestation: Documented by Tsering Soler, acting as a scribe for Aniceto Brown MD Provider Scribe Attestation: All medical record entries made by the Scribe were at my direction and personally dictated by me. I have reviewed the chart and agree that the record accurately reflects my personal performance of the history, physical exam, medical decision making, and the department course for this patient. I have also personally directed, reviewed, and agree with the discharge instructions and disposition. Disposition - Clinical Impression Clinical Impression: Hematoma - Patient ED Disposition Is Patient to be Admitted: Yes Counseled Patient/Family Regarding: Studies Performed, Diagnosis - Disposition Disposition Time: 23:00 Condition: STABLE
[2017-08-09 23:10] LABS: ALB/GLOB RATIO 1.1 (1.0-2.1); ALBUMIN 3.3 g/dL (3.5-5.0); ALT/SGPT 38 U/L (21-72); AST/SGOT 37 U/L (17-59); BLOOD UREA NITROGEN 8 mg/dl (9-20); CALCIUM 8.7 mg/dL (8.4-10.2); GFR AFRICAN-AMERICAN > 60; GFR NON-AFRICAN AMERICAN > 60
[2017-08-10] MEDS ORDERED: Oxycodone/Acetaminophen 5/325 mg Tab PO PRN (00:05)
[2017-08-10] MEDS ORDERED: Potassium Chloride 20 mEq ER Tab PO ONE ×2 (00:08→00:24)
--- NOTE | 2017-08-10 00:10 | CP.PCM.HP ---
History of Present Illness - History of Present Illness History of Present Illness: Surgery H&P. Dr. Morris 32yo M who is POD 2 s/p Lap Cholecystectomy here with an abdominal wall hematoma. Patient states that he has been doing well until this morning when he noted some increased swelling and tingling at the tips of his fingers, and noted a large bruise to the lower abdomen. He states that he has pain over the hematoma site. He also c/o some numbness at the tip of his tongue since the surgery. He denies any trauma after discharge from the hospital. He denies any fevers or chills. No N/V/D. Tolerating diet. Has been using Ketorolac and Tylenol for pain control as prescribed. No urinary complaints. No Chest pain. No SOB. Ambulating well without any complaints. No Dizziness, fatigue or lethargy. PMHx: Denies PSHx: Laparascopic Cholecystectomy 08/08/17 Family Hx: Non-contributory Social Hx: Current 1-2ppd smoker. Denies any ETOH use since recent discharge, admits to 1pint of [facility] every other day prior. Denies illicit drugs NKDA Present on Admission - Present on Admission Any Indicators Present on Admission: No Review of Systems - Review of Systems All systems: reviewed and no additional remarkable complaints except - Constitutional Constitutional: absent: Chills, Fatigue, Fever, Lethargy, Malaise - Cardiovascular Cardiovascular: absent: Chest Pain, Diaphoresis, Dyspnea - Respiratory Respiratory: absent: Cough, Dyspnea - Gastrointestinal Gastrointestinal: Abdominal Pain. absent: Constipation, Diarrhea, Hematemesis, Hematochezia, Nausea, Vomiting - Genitourinary Genitourinary: absent: Difficulty Urinating, Dysuria - Integumentary Additional comments: ecchymosis to the lower abdomen Past Patient History - Past Medical History & Family History Past Medical History?: No Past Family History: Reviewed and not pertinent - Past Social History Smoking Status: Current Some Days Smoker Drugs: Denies - MUSCULOSKELETAL/RHEUMATOLOGICAL Hx Falls: No - PSYCHIATRIC Hx Substance Use: No - SURGICAL HISTORY Hx Cholecystectomy: Yes (08/07/2017) - ANESTHESIA Hx Anesthesia: Yes Hx Anesthesia Reactions: No Meds Allergies/Adverse Reactions: Allergies Allergy/AdvReac Type Severity Reaction Status Date / Time No Known Allergies Allergy Verified 08/06/17 13:11 Physical Exam - Constitutional Appears: Well, Non-toxic, No Acute Distress - Head Exam Head Exam: ATRAUMATIC, NORMAL INSPECTION, NORMOCEPHALIC - Eye Exam Eye Exam: EOMI, Normal appearance. absent: Scleral icterus - ENT Exam ENT Exam: Mucous Membranes Moist, Normal Oropharynx - Respiratory Exam Respiratory Exam: NORMAL BREATHING PATTERN. absent: Accessory Muscle Use, Respiratory Distress - Cardiovascular Exam Cardiovascular Exam: RRR. absent: JVD - GI/Abdominal Exam GI & Abdominal Exam: Soft. absent: Distended, Firm, Guarding, Rebound, Rigid Additional comments: large area of ecchymosis to the lower abdomen. tender to palpation of the lower abdomen over the area of ecchymosis - Extremities Exam Extremities exam: Positive for: normal inspection. Negative for: calf tenderness - Neurological Exam Neurological exam: Alert, Oriented x3 - Skin Additional comments: large area of ecchymosis to the lower abdomen. right posterior upper arm with a raised area of rash, non tender, non-eccymotic , non-pruritic Results - Vital Signs Recent Vital Signs: Last Vital Signs Temp 99.2 F 08/09/17 21:37 Pulse 104 H 08/09/17 21:37 Resp 16 08/09/17 21:37 BP 129/73 08/09/17 21:37 Pulse Ox 98 08/09/17 23:30 - Labs Result Diagrams: 08/09/17 22:30 08/09/17 22:30 Labs: Laboratory Results - last 24 hr 08/09/17 08/09/17 22:30 22:30 WBC 9.4 RBC 2.58 L Hgb 7.7 L Hct 22.8 L MCV 88.5 MCH 29.9 MCHC 33.7 RDW 14.0 Plt Count 222 MPV 7.1 L Neut % (Auto) 70.8 Lymph % (Auto) 18.9 L [place] % (Auto) 7.5 Eos % (Auto) 2.0 Baso % (Auto) 0.8 Neut # (Auto) 6.7 Lymph # (Auto) 1.8 [place] # (Auto) 0.7 Eos # (Auto) 0.2 Baso # (Auto) 0.1 Sodium 140 Potassium 3.5 L Chloride 104 Carbon Dioxide 27 Anion Gap 13 BUN 8 L Creatinine 0.6 L Est GFR ( Amer) > 60 Est GFR (Non-Af Amer) > 60 Random Glucose 106 Calcium 8.7 Total Bilirubin 0.5 AST 37 ALT 38 Alkaline Phosphatase 64 Total Protein 6.2 L Albumin 3.3 L Globulin 2.9 Albumin/Globulin Ratio 1.1 Assessment & Plan - Assessment and Plan (Free Text) Assessment: 32yo M s/p Lap windy 08/07/17 here due to abdominal wall hematoma - Hb 7.7 (down from 13.5 preop) - Platelets within normal limits Plan: - Regular diet - Vitals q4h - f/u AM CBC, CMP - f/u Coags - Type and screen - IVF - Pain management - SCDs. No anticoagulation Further recs as per Dr. Arturo Loya PGY1 surgery pager: [phone]
[2017-08-10] MEDS: Lactated Ringer's 1,000 ML IV SCH ×2 (00:29→10:28)
[2017-08-10 01:24] LABS: PROTHROMBIN TIME 11.6 Seconds (9.8-13.1)
[2017-08-10] MEDS ORDERED: Sodium Chloride 0.9% 50 ML IV ONE (01:31)
[2017-08-10] MEDS ORDERED: Iohexol 300 100 ML IJ ONE (01:31)
[2017-08-10 06:50] LABS: BASO % 0.1 % (0.0-2.0); EOS # 0.2 K/uL (0.0-0.7); EOS % 2.7 % (0.0-4.0); HEMOGLOBIN 7.5 g/dL (12.0-18.0); LYMPH # 2.2 K/uL (1.0-4.3); LYMPH % 28.6 % (20.0-40.0); MEAN CORPUSCULAR HEMOGLOBIN 29.6 pg (27.0-31.0); MEAN CORPUSCULAR HGB CONC 33.3 g/dL (33.0-37.0); MEAN PLATELET VOLUME 7.4 fl (7.2-11.7); MONO # 0.6 K/uL (0.0-0.8); MONO % 8.1 % (0.0-10.0); NEUT # 4.6 K/uL (1.8-7.0); NEUT % 60.5 % (50.0-75.0); RBC 2.52 Mil/uL (4.40-5.90); RED CELL DISTRIBUTION WIDTH 14.4 % (11.5-14.5); WHITE BLOOD COUNT 7.6 K/uL (4.8-10.8)
[2017-08-10 07:34] LABS: ALB/GLOB RATIO 1.1 (1.0-2.1); ALBUMIN 3.2 g/dL (3.5-5.0); ALT/SGPT 34 U/L (21-72); AST/SGOT 30 U/L (17-59); BLOOD UREA NITROGEN 5 mg/dl (9-20); CALCIUM 8.5 mg/dL (8.4-10.2); GFR AFRICAN-AMERICAN > 60; GFR NON-AFRICAN AMERICAN > 60
--- NOTE | 2017-08-10 11:50 | CT ---
PROCEDURE: CT Abdomen and Pelvis with contrast HISTORY: Postop hematoma Relevant surgical history: Recent, within the last 4 days cholecystectomy COMPARISON: 08/06/2017 CT abdomen and pelvis 08/06/2017 abdominal ultrasound documenting cholelithiasis with gallbladder wall thickening/edema. TECHNIQUE: Contrast dose: 95 cc Omnipaque 300 Radiation dose: Total exam DLP = 684.74 mGy-cm. This CT exam was performed using one or more of the following dose reduction techniques: Automated exposure control, adjustment of the mA and/or kV according to patient size, and/or use of iterative reconstruction technique. FINDINGS: LOWER THORAX: New, trace bilateral pleural effusions and symmetrical atelectasis also a new finding LIVER: Unremarkable. No gross lesion or ductal dilatation. GALLBLADDER AND BILE DUCTS: Postoperative changes follow recent cholecystectomy with fluid/ blood in the gallbladder fossa. PANCREAS: Unremarkable. No gross lesion or ductal dilatation. SPLEEN: Unremarkable. ADRENALS: Unremarkable. No mass. KIDNEYS AND URETERS: Unremarkable. No hydronephrosis. No solid mass. VASCULATURE: Unremarkable. No aortic aneurysm. BOWEL: Unremarkable. No obstruction. No gross mural thickening. APPENDIX: Normal appendix. PERITONEUM: Evidence of moderate volume right upper quadrant and pelvic hemoperitoneum. Mean Hounsfield values for fluid in the pelvis and right upper quadrant 50 08-1962 Hounsfield units. LYMPH NODES: Unremarkable. No enlarged lymph nodes. BLADDER: Unremarkable. REPRODUCTIVE: Unremarkable. BONES: No acute fracture. OTHER FINDINGS: New postoperative edema and anasarca. IMPRESSION: Status post recent cholecystectomy with blood in the gallbladder fossa, hemoperitoneum primarily right upper quadrant and pelvis. Additional postoperative findings described above. Concordant results (preliminary interpretation) provided by [employer]. Procedure Completed: 01:40 Preliminary ([facility]) Report: Dictated and Authenticated: 02:32 Final Interpretation: 11:49
[2017-08-10 13:09] VITALS: BP 137/78; PULSE 92; RESP 17; TEMP 98; O2SAT 98
== END 2017-08-10 15:58 | disposition home or self-care (01) ==
LOC: H.ER 21:31 → H.ERHOLD 23:26 → H.MEDSURG1 08-10 01:46
PROVIDERS: ADMIT Specialist; ATTEND Specialist
DX: L76.32 Postprocedural hematoma of skin and subcutaneous tissue following other procedure (principal); Z98.890 Other specified postprocedural states; Y83.8 Other surgical procedures as the cause of abnormal reaction of the patient, or of later complication, without mention of misadventure at the time of the procedure; F17.200 Nicotine dependence, unspecified, uncomplicated; Z90.49 Acquired absence of other specified parts of digestive tract; Y92.9 Unspecified place or not applicable
CPT/HCPCS: 36415; 74177; 80053; 85025; 85610; 86850; 86900; 87040; 96360; 99284; G0378; J7030; J7120; Q9967

== ENCOUNTER 2017-11-23 06:53 | Emergency (ER) | payer MEDICAID ==
[2017-11-23 06:53] VITALS: BMI 28.4
[2017-11-23 07:05] VITALS: TEMP 98.7
--- NOTE | 2017-11-23 07:45 | ED PDOC ---
HPI: Psych/Substance Abuse Time Seen by Provider: 11/23/17 07:05 Chief Complaint (Nursing): Chest Pain Chief Complaint (Provider): Anxiety History Per: Patient History/Exam Limitations: no limitations Onset/Duration Of Symptoms: Hrs (today) Current Symptoms Are (Timing): Better Associated Symptoms: Anxiety Additional Complaint(s): Vinh Alvarado is a 32 year old male, with no significant past medical history, who was brought to the emergency department under [place] [employer] for medical clearance. Patient reports having an anxiety attack but states he feels better now. He reports similar symptoms in the past. He admits to alcohol use stating he drank x2 pints a couple of hours ago. He denies any chest pain, fever. chills or other medical complaints. PMD: None provided. Past Medical History Reviewed: Historical Data, Nursing Documentation, Vital Signs Vital Signs: Last Vital Signs Temp 98.7 F 11/23/17 07:02 Pulse 99 H 11/23/17 07:02 Resp 16 11/23/17 07:02 BP 135/83 11/23/17 07:02 Pulse Ox 100 11/23/17 07:02 - Medical History PMH: No Chronic Diseases Denies: Chronic Kidney Disease - Surgical History Surgical History: Cholecystectomy (08/07/2017) - Family History Family History: States: Unknown Family Hx - Social History Current smoker - smoking cessation education provided: Yes Alcohol: < 2 Drinks/Day Drugs: Denies - Immunization History Hx Tetanus Toxoid Vaccination: No Hx Influenza Vaccination: No Hx Pneumococcal Vaccination: No - Home Medications Home Medications: Ambulatory Orders Medication Instructions Recorded Acetaminophen [Tylenol] 650 mg PO Q6 PRN 08/09/17 Ketorolac Tromethamine [Toradol] 10 mg PO Q6 PRN 08/09/17 - Allergies Allergies/Adverse Reactions: Allergies Allergy/AdvReac Type Severity Reaction Status Date / Time No Known Allergies Allergy Verified 11/23/17 07:02 Review of Systems ROS Statement: Except As Marked, All Systems Reviewed And Found Negative Constitutional: Negative for: Fever, Chills Cardiovascular: Negative for: Chest Pain Psych: Positive for: Anxiety Physical Exam - Reviewed Nursing Documentation Reviewed: Yes Vital Signs Reviewed: Yes - Physical Exam Appears: Positive for: No Acute Distress Head Exam: Positive for: ATRAUMATIC, NORMOCEPHALIC Skin: Positive for: Normal Color, Warm, Dry Eye Exam: Positive for: Normal appearance, EOMI, PERRL Neck: Positive for: Painless ROM Cardiovascular/Chest: Positive for: Regular Rate, Rhythm. Negative for: Murmur Respiratory: Positive for: Normal Breath Sounds. Negative for: Respiratory Distress Gastrointestinal/Abdominal: Positive for: Normal Exam, Soft. Negative for: Tenderness Back: Positive for: Normal Inspection Extremity: Positive for: Normal ROM (upper and lower extremities). Negative for: Deformity Neurologic/Psych: Positive for: Alert, Oriented - ECG O2 Sat by Pulse Oximetry: 100 (RA) Pulse Ox Interpretation: Normal Medical Decision Making Medical Decision Making: Time: 07:05 Initial Impression: Anxiety, medical clearance Initial Plan: --Alcohol serum --CMP --Troponin I --CBC w/ differential --Reevaluation ----- Scribe Attestation: Documented by Johann Stein, acting as a scribe for Lisa Hillman MD. Provider Scribe Attestation: All medical record entries made by the Scribe were at my direction and personally dictated by me. I have reviewed the chart and agree that the record accurately reflects my personal performance of the history, physical exam, medical decision making, and the department course for this patient. I have also personally directed, reviewed, and agree with the discharge instructions and disposition. Disposition - Disposition Forms: [employer] (Ukrainian)
[2017-11-23 08:07] LABS: BASO % 0.4 % (0.0-2.0); EOS # 0.1 K/uL (0.0-0.7); EOS % 1.4 % (0.0-4.0); HEMOGLOBIN 15.3 g/dL (12.0-18.0); LYMPH # 2.1 K/uL (1.0-4.3); LYMPH % 21.9 % (20.0-40.0); MEAN CELL VOLUME 85.4 fl (80.0-94.0); MEAN CORPUSCULAR HEMOGLOBIN 29.1 pg (27.0-31.0); MEAN CORPUSCULAR HGB CONC 34.1 g/dL (33.0-37.0); MEAN PLATELET VOLUME 7.6 fl (7.2-11.7); MONO # 0.7 K/uL (0.0-0.8); MONO % 6.8 % (0.0-10.0); NEUT # 6.8 K/uL (1.8-7.0); NEUT % 69.5 % (50.0-75.0); NRBC % 0.1 % (0.0-0.0); RBC 5.25 Mil/uL (4.40-5.90); RED CELL DISTRIBUTION WIDTH 16.3 % (11.5-14.5); WHITE BLOOD COUNT 9.7 K/uL (4.8-10.8)
[2017-11-23 08:26] LABS: ALB/GLOB RATIO 1.2 (1.0-2.1); ALBUMIN 4.4 g/dL (3.5-5.0); ALT/SGPT 26 U/L (21-72); AST/SGOT 29 U/L (17-59); BLOOD UREA NITROGEN 10 mg/dl (9-20); CALCIUM 8.9 mg/dL (8.4-10.2); GFR NON-AFRICAN AMERICAN > 60
[2017-11-23] MEDS ORDERED: Potassium Chloride 20 mEq ER Tab PO STA (08:36)
[2017-11-23] MEDS ORDERED: Potassium Chloride 20 mEq ER Tab PO ONE (08:42)
[2017-11-23 10:27] VITALS: BP 141/78; PULSE 81; RESP 19; O2SAT 99
--- NOTE | 2017-11-23 14:35 | CARD ---
APPROVED REPORT Date of service: 11/23/2017 EKG Measurement Heart [id number] <Conclusion> Normal sinus rhythm Minimal voltage criteria for LVH, may be normal variant Early repolarization Borderline ECG
== END 2017-11-23 10:30 ==
LOC: H.ER 06:53
DX: F41.9 Anxiety disorder, unspecified (principal); R07.89 Other chest pain